=== PATIENT | male | born 2000 | race Caucasian/White ===

== ENCOUNTER 2023-10-03 19:58 | Inpatient (IN) | payer OTHER, SELFPAY ==
[~2023-10-03] VITALS: Ht 177.8 cm; Wt 86.0 kg
[2023-10-03 20:47] LABS: HEMATOCRIT 48.5 % (42.0-52.0); HEMOGLOBIN 16.7 g/dl (13.5-17.5); MEAN CORPUSCULAR HEMOGLOBIN 30.1 pg (27.0-33.0); MEAN CORPUSCULAR HGB CONC 34.4 g/dl (32.0-36.5); MEAN CORPUSCULAR VOLUME 87.4 fl (80.0-96.0); PLATELET COUNT, AUTOMATED 266 10^3/uL (150-450); RED BLOOD COUNT 5.55 10^6/uL (4.30-6.10)
[2023-10-03 21:16] LABS: AMPHETAMINES LEVEL URINE NEGATIVE (NEGATIVE)
[2023-10-03 21:17] LABS: BARBITURATES URINE NEGATIVE (NEGATIVE); BENZODIAZEPINES URINE NEGATIVE (NEGATIVE); CANNABINOIDS URINE NEGATIVE (NEGATIVE); COCAINE METABOLITE URINE NEGATIVE (NEGATIVE); METHADONE URINE NEGATIVE (NEGATIVE); OPIATES URINE NEGATIVE (NEGATIVE); PHENCYCLIDINE URINE NEGATIVE (NEGATIVE)
[2023-10-03 21:19] LABS: ETHYL ALCOHOL (ETHANOL) 0.003 % (0.000-0.010)
[2023-10-03 21:21] LABS: ALBUMIN 4.9 G/DL (3.2-5.2); ALKALINE PHOSPHATASE 128 U/L (46-116); ALT/SGPT 33 U/L (7.0-40); AST/SGOT 18 U/L (<34); BILIRUBIN,DIRECT 0.7 MG/DL (<0.4); BILIRUBIN,TOTAL 2.3 MG/DL (0.3-1.2); BLOOD UREA NITROGEN 14 MG/DL (9-23); CALCIUM LEVEL 10.1 MG/DL (8.5-10.1); CARBON DIOXIDE LEVEL 30 MMOL/L (20-31); CHLORIDE LEVEL 108 MMOL/L (98-107); CREATININE FOR GFR 1.06 MG/DL (0.70-1.30); GLUCOSE, FASTING 102 MG/DL (60-100); POTASSIUM SERUM 4.5 MMOL/L (3.5-5.1); SALICYLATE LEVEL < 3.0 MG/DL (<30); SODIUM LEVEL 141 MMOL/L (136-145); TOTAL PROTEIN 8.3 G/DL (5.7-8.2)
[2023-10-03 21:22] LABS: THYROID STIMULATING HORMONE 1.729 uIU/ML (0.48-4.17)
[2023-10-03] MEDS ORDERED: MAALOX 30 ML SUSP *UDC PO PRN (22:30)
[2023-10-03] MEDS ORDERED: ACETAMINOPHEN TAB 650MG DOSE (2X325MG) PO PRN (22:30)
[2023-10-03] MEDS ORDERED: diphenhydrAMINE 25MG CAP PO PRN (22:30)
[2023-10-03] MEDS ORDERED: MOM 30ML SUSPENSION UDC PO PRN (22:30)
[2023-10-03] MEDS ORDERED: IBUPROFEN 400MG TAB PO PRN (22:30)
[2023-10-04 01:02] VITALS: BP 120/56; TEMP 97.8; O2SAT 98
[2023-10-04] MEDS ORDERED: HOME MED LIST COMPLETE! XX SCH (01:10)
[2023-10-04 18:32] VITALS: BP 138/56; TEMP 98.5; O2SAT 98
[2023-10-04] MEDS: traZODone 50 MG TAB PO PRN (21:47)
[2023-10-05 05:44] VITALS: BP 133/73; TEMP 97; O2SAT 99
[2023-10-05] MEDS: SERTRALINE HCL 25 MG TABLET PO SCH (13:28)
[2023-10-05 15:53] VITALS: BP 140/65; TEMP 97.6; O2SAT 99
[2023-10-06 06:16] VITALS: BP 126/77; TEMP 97; O2SAT 97
[2023-10-06 16:36] VITALS: BP 130/82; TEMP 98; O2SAT 100
[2023-10-07 05:49] VITALS: BP 117/57; TEMP 97; O2SAT 98
[2023-10-07] MEDS ORDERED: SERT25TA21 PO (08:10)
== END 2023-10-07 11:39 | disposition home or self-care (01) | DRG 881 ==
LOC: M ED 19:58 → M ED INP 22:28 → M PSY 10-04 00:16
PROVIDERS: ADMIT Psychiatry & Neurology Psychiatry; ATTEND Psychiatry & Neurology Psychiatry
DX: F32.A Depression, unspecified (principal); R45.851 Suicidal ideations; Z91.51 Personal history of suicidal behavior; Z81.3 Family history of other psychoactive substance abuse and dependence; Z81.8 Family history of other mental and behavioral disorders; Z56.89 Other problems related to employment; Z63.0 Problems in relationship with spouse or partner; Z81.1 Family history of alcohol abuse and dependence

== ENCOUNTER 2023-11-16 20:50 | Inpatient (IN) | payer OTHER ==
[~2023-11-16] VITALS: Ht 177.8 cm; Wt 85.2 kg
[~2023-11-16 20:50] MED LIST: SERT25TA21 PO
[2023-11-16 21:21] LABS: HEMATOCRIT 44.2 % (42.0-52.0); HEMOGLOBIN 15.3 g/dl (13.5-17.5); MEAN CORPUSCULAR HEMOGLOBIN 30.4 pg (27.0-33.0); MEAN CORPUSCULAR HGB CONC 34.6 g/dl (32.0-36.5); MEAN CORPUSCULAR VOLUME 87.9 fl (80.0-96.0); PLATELET COUNT, AUTOMATED 257 10^3/uL (150-450); RED BLOOD COUNT 5.03 10^6/uL (4.30-6.10); WHITE BLOOD COUNT 7.6 10^3/uL (4.0-10.0)
[2023-11-16 21:50] LABS: ETHYL ALCOHOL (ETHANOL) 0.018 % (0.000-0.010)
[2023-11-16 21:51] LABS: SALICYLATE LEVEL < 3.0 MG/DL (<30)
[2023-11-16 21:59] LABS: ALBUMIN 4.4 G/DL (3.2-5.2); ALKALINE PHOSPHATASE 109 U/L (46-116); ALT/SGPT 15 U/L (7.0-40); AMPHETAMINES LEVEL URINE NEGATIVE (NEGATIVE); AST/SGOT 12 U/L (<34); BILIRUBIN,DIRECT 0.4 MG/DL (<0.4); BILIRUBIN,TOTAL 1.5 MG/DL (0.3-1.2); BLOOD UREA NITROGEN 15 MG/DL (9-23); CARBON DIOXIDE LEVEL 25 MMOL/L (20-31); CHLORIDE LEVEL 108 MMOL/L (98-107); CREATININE FOR GFR 0.84 MG/DL (0.70-1.30); GLOMERULAR FILTRATION RATE > 60.0 (>60); GLUCOSE, FASTING 102 MG/DL (60-100); POTASSIUM SERUM 4.4 MMOL/L (3.5-5.1); SODIUM LEVEL 140 MMOL/L (136-145); THYROID STIMULATING HORMONE 0.904 uIU/ML (0.55-4.78); TOTAL PROTEIN 7.5 G/DL (5.7-8.2)
[2023-11-16 22:00] LABS: BARBITURATES URINE NEGATIVE (NEGATIVE); BENZODIAZEPINES URINE NEGATIVE (NEGATIVE); COCAINE METABOLITE URINE NEGATIVE (NEGATIVE); METHADONE URINE NEGATIVE (NEGATIVE); OPIATES URINE NEGATIVE (NEGATIVE); PHENCYCLIDINE URINE NEGATIVE (NEGATIVE)
[2023-11-16 22:08] LABS: CANNABINOIDS URINE POSITIVE (NEGATIVE)
[2023-11-16] MEDS: ACETAMINOPHEN 325 MG TAB PO ONE (22:51)
[2023-11-16] MEDS ORDERED: SERT25TA85 PO (23:05)
[2023-11-16] MEDS ORDERED: HOME MED LIST COMPLETE! XX SCH (23:10)
[2023-11-17] MEDS: SERTRALINE HCL 25 MG TABLET PO SCH (08:30)
[2023-11-17] MEDS ORDERED: LORazepam 2 MG TAB PO PRN (11:00)
[2023-11-17] MEDS ORDERED: traZODone 50 MG TAB PO PRN (11:00)
[2023-11-17] MEDS ORDERED: MOM 30ML SUSPENSION UDC PO PRN (11:00)
[2023-11-17] MEDS ORDERED: MAALOX 30 ML SUSP *UDC PO PRN (11:00)
[2023-11-17] MEDS ORDERED: THIAMINE 100 MG TAB PO SCH (12:00)
[2023-11-17 15:50] VITALS: BP 131/71; TEMP 97.3
[2023-11-17] MEDS: THIAMINE 100 MG TAB PO SCH (17:26)
[2023-11-17] MEDS: MULTIVITAMINS/MINERALS THERAP 1 TAB PO SCH (17:26)
[2023-11-17] MEDS: FOLIC ACID 1MG TAB PO SCH (17:26)
[2023-11-17] MEDS: NICOTINE 21MG/24HR 1 EA TRANSDERMAL TD SCH (19:47)
[2023-11-18 06:06] VITALS: BP 128/68; TEMP 97.8; O2SAT 98
[2023-11-18 08:00] VITALS: BP 128/68
[2023-11-18] MEDS: SERTRALINE HCL 25 MG TABLET PO SCH (08:16)
[2023-11-18] MEDS: buPROPion 75 MG TAB PO SCH (14:48)
[2023-11-18] MEDS: FLUZONE VACCINE TRIVALENT PF(2024-25) 0.5ML SYRINGE IM.IMMUN ONE (15:51)
[2023-11-18 16:00] VITALS: BP 155/63; TEMP 97; O2SAT 97
[2023-11-18 18:57] VITALS: BP 155/63; TEMP 97; O2SAT 97
[2023-11-18] MEDS: diphenhydrAMINE 25MG CAP PO PRN (21:15)
[2023-11-18] MEDS: MIRTAZAPINE 15 MG TAB PO SCH (21:15)
[2023-11-19 06:03] VITALS: BP 125/68
[2023-11-19 06:37] VITALS: BP 125/68; TEMP 97.8; O2SAT 96
[2023-11-19 16:11] VITALS: BP 137/79; TEMP 97.9; O2SAT 97
[2023-11-20 06:25] VITALS: BP 129/55; TEMP 97; O2SAT 100
[2023-11-20 15:33] VITALS: BP 148/66; TEMP 98.1; O2SAT 99
[2023-11-20] MEDS: ACETAMINOPHEN TAB 650MG DOSE (2X325MG) PO PRN (15:42)
[2023-11-20] MEDS: IBUPROFEN 400MG TAB PO PRN (17:18)
[2023-11-21 06:26] VITALS: BP 120/60; TEMP 98; O2SAT 95
[2023-11-21 14:48] VITALS: BP 132/60; TEMP 98.3; O2SAT 99
[2023-11-22 06:55] VITALS: BP 127/77; TEMP 97.6; O2SAT 98
[2023-11-22] MEDS ORDERED: MIRT-10 PO (08:16)
[2023-11-22] MEDS ORDERED: BUPR75TA5 PO (08:16)
== END 2023-11-22 09:01 | disposition home or self-care (01) | DRG 881 ==
LOC: M ED 20:50 → M ED INP 11-17 10:59 → M PSY 11-17 15:50
PROVIDERS: ADMIT Psychiatry & Neurology Psychiatry; ATTEND Psychiatry & Neurology Psychiatry
DX: F32.A Depression, unspecified (principal); R45.851 Suicidal ideations; F10.10 Alcohol abuse, uncomplicated; Z62.812 Personal history of neglect in childhood; Z91.51 Personal history of suicidal behavior; Z56.3 Stressful work schedule; Z63.0 Problems in relationship with spouse or partner; Z81.8 Family history of other mental and behavioral disorders; Z91.82 Personal history of military deployment; Z79.899 Other long term (current) drug therapy